=== PATIENT | male | born 1985 | race Caucasian/White ===

== ENCOUNTER 2021-06-10 04:24 | Emergency (ER) | payer SELFPAY ==
[~2021-06-10] VITALS: Ht 175.3 cm; Wt 68.0 kg
--- NOTE | 2021-06-10 04:45 | NUR ---
Pt ambulated to ER for laceration above LT eyebrow and bridge of nose after being bit by a dog at a green party. Denies any pain/discomfort. Afebrile. Significant other at bedside.
[2021-06-10] MEDS ORDERED: TDAP DIPH,PERTUSS,TET VAC/PF 0.5 ML DISP.SYRIN IM ONE ×2 (05:00→05:04)
[2021-06-10] MEDS ORDERED: AMOXICILLIN-CLAVUL 875-125MG TABLET PO ONE (05:30)
[2021-06-10] MEDS ORDERED: AMOX-430 PO (07:02)
[2021-06-10] MEDS ORDERED: AMOXICILLIN-CLAVUL 875-125MG TABLET ONE (07:08)
--- NOTE | 2021-06-10 07:19 | NUR ---
Patient discharged to home in stable condition. Written and verbal after care instructions given. Patient verbalizes understanding of instructions. Stressed follow up with ENT doctor or return to ER for worsening s/s.
[2021-06-10 07:27] VITALS: BP 121/80
== END 2021-06-10 07:25 | disposition home or self-care (01) ==
LOC: ER 04:28
DX: S01.81XA Laceration without foreign body of other part of head, initial encounter (principal); S01.411A Laceration without foreign body of right cheek and temporomandibular area, initial encounter; W54.0XXA Bitten by dog, initial encounter; Y92.89 Other specified places as the place of occurrence of the external cause
CPT/HCPCS: 12013; 90471; 90715; 99283; J3490; A4217; A4663; J7040